=== PATIENT | female | born 1985 | race Two or more races ===

== ENCOUNTER 2023-02-02 01:53 | Emergency (ER) | payer SELFPAY ==
[~2023-02-02] VITALS: Ht 167.6 cm; Wt 70.0 kg
[2023-02-02] MEDS ORDERED: IOHEXOL 350 MG/ML 100ML IJ ONE (02:10)
[2023-02-02] MEDS ORDERED: HYDROmorphone HCL 2 MG/ML VL/or syr IV ONE (02:15)
[2023-02-02] MEDS ORDERED: SODIUM CHLORIDE 0.9% 1,000 ML IV ONE (02:15)
[2023-02-02] MEDS ORDERED: ONDANSETRON HCL 4 MG/2 ML VIAL IV ONE (02:15)
[2023-02-02 02:49] LABS: Basophils # (auto) 0.1 10 ^3/uL (0-0.2); Basophils % (auto) 0.9 % (0.0-2.0); Eosinophils # (auto) 0.1 10 ^3/uL (0-0.8); Eosinophils % (auto) 1.2 % (0.0-7.0); Hematocrit 32.7 % (36.0-46.0); Hemoglobin 11.1 g/dL (12.2-16.2); Lymphocytes # (auto) 1.9 10 ^3/uL (0.4-5.4); Lymphocytes % (auto) 34.4 % (10.0-50.0); Mean Corpuscular Hemoglobin 29.7 pg (28.0-32.0); Mean Corpuscular Volume 87.3 fL (80.0-100.0); Monocytes # (auto) 0.5 10 ^3/uL (0-1.3); Monocytes % (auto) 9.5 % (0.0-12.0); Neutrophils # (auto) 2.9 10 ^3/uL (1.6-8.6); Nucleated Red Blood Cells % 0.2 %; Red Blood Cells 3.75 10^6/uL (4.0-5.20); White Blood Cell 5.4 10^3/uL (4.4-10.8)
[2023-02-02 03:01] LABS: Albumin 3.5 g/dL (3.4-5.0); Calcium 8.3 mg/dL (8.5-10.1); Potassium 3.3 mmol/L (3.5-5.1)
[2023-02-02 03:04] LABS: BUN/Creatinine Ratio 16.9 (10.0-20.0); Bilirubin, Total 0.2 mg/dL (0.2-1.0); Total Protein 6.4 g/dL (6.4-8.2)
[2023-02-02] MEDS ORDERED: PERCOT PO (06:25)
[2023-02-02 07:00] VITALS: BP 119/67
== END 2023-02-02 07:24 | disposition home or self-care (01) ==
LOC: ER 01:57 → EDBD 01:57 → ER 07:06
DX: S16.1XXA Strain of muscle, fascia and tendon at neck level, initial encounter (principal); S66.912A Strain of unspecified muscle, fascia and tendon at wrist and hand level, left hand, initial encounter; S66.911A Strain of unspecified muscle, fascia and tendon at wrist and hand level, right hand, initial encounter; V89.2XXA Person injured in unspecified motor-vehicle accident, traffic, initial encounter; Y93.89 Activity, other specified; Y92.411 Interstate highway as the place of occurrence of the external cause; Y99.8 Other external cause status
CPT/HCPCS: 36415; 70450; 71260; 72125; 73130; 74177; 80053; 85025; 93005; 96361; 96374; 96375; 99285; J1170; J2405; J7030; Q9967